=== PATIENT | male | born 1950 | race Caucasian/White ===

== ENCOUNTER 2021-11-22 09:12 | Emergency (ER) | payer OTHER, SELFPAY ==
[2021-11-22 09:17] VITALS: BP 165/84; PULSE 97; RESP 18; TEMP 36.6; O2SAT 99; BMI 28.7
--- NOTE | 2021-11-22 09:27 | ED_ITS ---
Documented by User: NICK Posada 11/22/21 11:07 HPI - General Adult General: Chief complaint: General Medical Stated complaint: Swelling and tenderness in face Time Seen by Provider: 11/22/21 09:17 History of Present Illness: Patient is a 71-year-old male comes to the ED with swelling and tenderness on face. Symptoms started 4 days ago. He has had some mild swelling, redness and tenderness of right maxillary region and around the right orbit. Denies any vision changes, eye pain or eye pain with eye movement. He has not started any recent medications and denies any allergies. Denies any lip or tongue swelling or any throat swelling/shortness of breath. Associated symptoms: Deny chest pain, dyspnea, headache(s), nausea, rash, palpitations or vomiting Review of Systems Const: Denies: fever(s), chills or fatigue Eyes: Denies: change in vision or eye discomfort ENMT: Denies: throat pain, odynophagia, nasal discharge or nasal congestion Card: Denies: chest pain, palpitations, edema, swelling of feet/ankles, dyspnea on exertion or orthopnea Resp: Denies: dyspnea, productive cough or non-productive cough GI: Denies: abdominal pain, nausea, vomiting, diarrhea, constipation or hem atochezia : Denies: flank pain, difficulty urinating, dysuria or hematuria Musc: Denies: neck pain, back pain or extremity swelling Skin/Breast: Reports: skin tenderness (Right maxillary region of face) and skin swelling (Right maxillary region of face); Denies: rash or new lesions Neuro: Denies: headache(s), numbness in extremities or weakness in extremities [facility] ED PFSH: Medical History Hypertension Surgical History No pertinent past surgical history Social History Smoking and tobacco status: former smoker Physical Exam Const: COMMON NORMALS: no acute distress, patient oriented x3, healthy appearing and alert GENERAL APPEARANCE: cooperative and comfortable HENMT: COMMON NORMALS: normocephalic HEAD & SCALP: normocephalic FACE & SINUS: edema on the right periorbital and maxilla and Facial tenderness on exam of face and sinuses on the right periorbital and maxilla MOUTH: Normal oral and palatal mucosa present THROAT: posterior oropharynx normal and uvula midline Eye: COMMON NORMALS: Equal, round and reactive pupils present, EOMs intact bilaterally and conjunctivae normal PERIORBITAL: periorbital findings abnormal positive right periorbital swelling (inferior aspect-no eye lid edema) CONJUNCTIVA: Yes conjunctivae normal PUPIL: Yes Equal, round and reactive pupils present Neck/C-Spine: COMMON NORMALS: supple GENERAL: Yes normal visual inspection Resp: COMMON NORMALS: normal respiratory effort, No retractions, No use of accessory muscles and clear to auscultation bilaterally AUSCULTATION: clear to auscultation bilaterally Cardio: COMMON NORMALS: regular rate, regular rhythm, S1 normal heart sound present, S2 normal heart sound present, No gallops present (Cardio), No clicks present (Cardio), No murmurs present (Cardio) and Peripheral pulses 2+ throughout RATE: regular rate RHYTHM: regular rhythm HEART SOUNDS: S1 normal heart sound present and S2 normal heart sound present PERIPHERAL PULSES: Peripheral pulses 2+ throughout GI: COMMON NORMALS: Normal to inspection, nondistended, normoactive bowel sounds present, Soft to palpation, non-tender and no masses PALPATION: Yes Soft to palpation : COMMON NORMALS: Yes no CVA tenderness BLADDER/KIDNEY EXAM: Yes no CVA tenderness Back/Pelvis: COMMON NORMALS: no CVA tenderness Extremity: COMMON NORMALS: normal to inspection Neuro: COMMON NORMALS: patient oriented x3 and moves all extremities SENSORIUM/ORIENTATION: Yes alert Skin: GENERAL SKIN EXAM: dry skin Course Vital Signs: Vital signs: Vital Signs Temperature 97.9 F 11/22/21 09:17 Pulse Rate 97 11/22/21 09:17 Respiratory Rate 18 11/22/21 09:17 Blood Pressure 165/84 11/22/21 09:17 Pulse Oximetry 99 11/22/21 09:17 [facility] - General Adult Medical Decision Making Patient is a 71-year-old male comes to the ED with facial erythema, edema tenderness on right maxillary and right periorbital region of face. Symptoms started approximately 4 days ago. Patient denies any pain in eye, pain with ocular movements, vision changes, lip/tongue swelling or any throat swelling/shortness of breath. He has no eyelid swelling or edema. Vitals are stable. Exam findings suggestive of some facial cellulitis and no evidence of periorbital or orbital cellulitis seen upon exam. Patient was given a dose of Rocephin and Solu-Medrol while here in the ED. He is diagnosed cellulitis and was discharged home with a prescription for clindamycin and some prednisone. Return to ED precautions given. Patient told to follow-up with PCP in the next week for reevaluation. Patient stood agree with plan. Discharge Plan Discharge Patient Disposition: Home Clinical Impression: Facial cellulitis Condition: Stable Prescriptions: New clindamycin HCl 150 mg capsule 300 mg PO QID 7 Days Qty: 56 0RF prednisone 20 mg tablet 20 mg PO BID 3 Days Qty: 6 0RF No Action lisinopril 20 mg tablet 20 mg PO DAILY 0RF pantoprazole [Protonix] 40 mg tablet,delayed release (DR/EC) 40 mg PO DAILY 0RF tamsulosin 0.4 mg capsule 0.4 mg PO DAILY 0RF doxycycline hyclate 100 mg capsule 100 mg PO BID 7 Days Qty: 14 0RF Discharge Orders: Discharge ED (Routine); Ordered 11/22/21 Ordered By: Zain Leblanc Referrals: Jesus Alberto Vogt DO [Family Provider] - Discharge Diet: Regular Discharge Activity: Resume usual activity Patient Instructions: Cellulitis (ED) Activity Restrictions/Additional Instructions: Follow-up with medical provider as directed in the next 5 to 7 days for reevaluation. Take medications as prescribed. Return to the ER or your medical provider if condition worsens. Please read and understand discharge instructions. Thank you for choosing [facility] for your healthcare needs today. Please realize this is an emergency room and that we are providing you with a medical screening exam and this may not be complete and all inclusive of all the testing and or work up that you may need to determine your ailment or severity of your illness. It is very important that you follow up as instructed or that you return to the Emergency Department should you have concerns or if your condition changes or worsens in any way. Coding Level of Care Code ED Gifted Teacher for Lisag Fwd Exam Comprehensive Documented by User: Dallin Carlos DO 11/22/21 11:37 HPI - General Adult General: Chief complaint: General Medical Stated complaint: Swelling and tenderness in face Time Seen by Provider: 11/22/21 09:17 [facility] ED PFSH: Medical History Hypertension Surgical History No pertinent past surgical history Social History Smoking and tobacco status: former smoker Course Vital Signs: Vital signs: Vital Signs Temperature 97.9 F 11/22/21 09:17 Pulse Rate 97 11/22/21 09:17 Respiratory Rate 18 11/22/21 09:17 Blood Pressure 165/84 11/22/21 09:17 Pulse Oximetry 99 11/22/21 09:17 MDM - General Adult Medical Decision Making Patient is a 71-year-old male comes to the ED with facial erythema, edema tenderness on right maxillary and right periorbital region of face. Symptoms started approximately 4 days ago. Patient denies any pain in eye, pain with ocular movements, vision changes, lip/tongue swelling or any throat swelling/shortness of breath. He has no eyelid swelling or edema. Vitals are stable. Exam findings suggestive of some facial cellulitis and no evidence of periorbital or orbital cellulitis seen upon exam. Patient was given a dose of Rocephin and Solu-Medrol while here in the ED. He is diagnosed cellulitis and was discharged home with a prescription for clindamycin and some prednisone. Return to ED precautions given. Patient told to follow-up with PCP in the next week for reevaluation. Patient stood agree with plan. Chart reviewed and patient discussed with midlevel. Agree with assessment and plan. Discharge Plan Discharge Patient Disposition: Home Clinical Impression: Facial cellulitis Condition: Stable Prescriptions: New clindamycin HCl 150 mg capsule 300 mg PO QID 7 Days Qty: 56 0RF prednisone 20 mg tablet 20 mg PO BID 3 Days Qty: 6 0RF No Action lisinopril 20 mg tablet 20 mg PO DAILY 0RF pantoprazole [Protonix] 40 mg tablet,delayed release (DR/EC) 40 mg PO DAILY 0RF tamsulosin 0.4 mg capsule 0.4 mg PO DAILY 0RF doxycycline hyclate 100 mg capsule 100 mg PO BID 7 Days Qty: 14 0RF Discharge Orders: Discharge ED (Routine); Ordered 11/22/21 Ordered By: Zain Leblanc Referrals: Jesus Alberto Vogt DO [Family Provider] - Discharge Diet: Regular Discharge Activity: Resume usual activity Patient Instructions: Cellulitis (ED) Activity Restrictions/Additional Instructions: Follow-up with medical provider as directed in the next 5 to 7 days for reevaluation. Take medications as prescribed. Return to the ER or your medical provider if condition worsens. Please read and understand discharge instructions. Thank you for choosing [facility] for your healthcare needs today. Please realize this is an emergency room and that we are providing you with a medical screening exam and this may not be complete and all inclusive of all the testing and or work up that you may need to determine your ailment or severity of your illness. It is very important that you follow up as instructed or that you return to the Emergency Department should you have concerns or if your condition changes or worsens in any way. Coding Level of Care Code ED Gifted Teacher for Derrick Fwd Exam Comprehensive
[2021-11-22] MEDS: cefTRIAXone 1,000 MG in lidocaine 1% 2.1 ML 2 MG IM (10:37)
== END 2021-11-22 10:45 | disposition home or self-care (01) ==
LOC: ER 09:57
PROVIDERS: Emergency Provider Physician Assistant
DX: Z87.891 Personal history of nicotine dependence (principal); L03.211 Cellulitis of face
CPT/HCPCS: 96372; 99283; J0696; J2930

== ENCOUNTER → 2021-12-25 09:59 | Outpatient (BNVA) | payer OTHER, SELFPAY | PROVIDERS: PCP Emergency Medicine Emergency Medical Services; Visit Provider Internal Medicine Cardiovascular Disease | DX: I49.3 Ventricular premature depolarization (principal); I10 Essential (primary) hypertension; E78.5 Hyperlipidemia, unspecified; K21.9 Gastro-esophageal reflux disease without esophagitis; R00.0 Tachycardia, unspecified | CPT/HCPCS: 93225; 99204 ==

== ENCOUNTER 2022-08-20 11:00 | Outpatient (CLI) | payer OTHER, SELFPAY | END 2022-08-20 11:01 | disposition home or self-care (01) | LOC: SLEEP 08-22 10:05 | PROVIDERS: PCP Emergency Medicine Emergency Medical Services; Visit Provider Internal Medicine Cardiovascular Disease | DX: G47.10 Hypersomnia, unspecified (principal) | CPT/HCPCS: G0399 ==

== ENCOUNTER → 2022-10-02 10:17 | Outpatient (BNVA) | payer OTHER, SELFPAY | PROVIDERS: PCP Emergency Medicine Emergency Medical Services; Visit Provider Internal Medicine Cardiovascular Disease | DX: I49.3 Ventricular premature depolarization (principal); I10 Essential (primary) hypertension; K21.9 Gastro-esophageal reflux disease without esophagitis; E78.5 Hyperlipidemia, unspecified; Z87.891 Personal history of nicotine dependence; Z79.82 Long term (current) use of aspirin | CPT/HCPCS: 93005; 99214 ==

== ENCOUNTER 2022-10-29 06:53 | Outpatient (CLI) | payer OTHER, SELFPAY ==
--- NOTE | 2022-10-29 07:15 | USCV_ITS ---
Rufus Mcdonnell Age: 72 Gender: M : 1950 Exam Date: 10/29/2022 07:41 Ordering Phys: Uzair Curiel MD ([email or web address]) Technologist: Jovani Welch [place] [facility] [place]: ventricular arrhythmia BP: 132 / 72 HR: 76 Rhythm: Other Technical Quality: Adequate MEASUREMENTS (Male / Female) Normal Values 2D ECHO LV Diastolic Diameter PLAX 4.5 cm 4.2 - 5.9 / 3.9 - 5.3 cm LV Systolic Diameter PLAX 2.8 cm IVS Diastolic Thickness 1.0 cm 0.6 - 1.0 / 0.6 - 0.9 cm IVS Systolic Thickness 1.1 cm LVPW Diastolic Thickness 0.9 cm 0.6 - 1.0 / 0.6 - 0.9 cm LVPW Systolic Thickness 1.4 cm LVOT Diameter 2.3 cm LV Ejection Fraction 2D Teich 67.4 % LV Ejection Fraction MOD 2C 62.1 % LV Ejection Fraction 2C AL 62.0 % LA Diameter 3.2 cm LA Width 3.1 cm LA Height 4.5 cm RA Width 3.0 cm RA Height 4.5 cm Aorta at Sinotubular Diameter 2.8 cm IVC Diameter 1.6 cm M-MODE Aortic Annulus Diameter 2.8 cm LA Ao Ratio MM 1.2 MV E Point Septal Separation 0.9 cm DOPPLER AV Peak Velocity 146.3 cm/s LVOT Peak Velocity 97.0 cm/s AV Area Cont Eq vti 2.5 cm squared AV Area Cont Eq pk 2.7 cm squared MV Peak Velocity 169.0 cm/s MV Area PHT 3.6 cm squared Mitral E to A Ratio 0.7 MV E' Velocity 44.0 cm/s Mitral E to MV E' Ratio 8.5 Mitral E to LV E' Lateral Ratio 8.1 Mitral E to LV E' Septal Ratio 8.9 TR Peak Velocity 321.4 cm/s TR Peak Gradient 41.3 mmHg TR Mean Velocity 243.2 cm/s TR Mean Gradient 25.9 mmHg TR Velocity Time Integral 98.8 cm Right Atrial Pressure 3.0 mmHg Pulmonary Artery Systolic Pressu 44.3 mmHg PV Peak Velocity 106.7 cm/s RV Acceleration Time 0.1 s RV Ejection Time 0.4 s RV AcT/ET 0.4 FINDINGS Left Ventricle Normal left ventricular size and systolic function, EF 63 %. No regional wall motion abnormalities. Grade I/IV diastolic dysfunction (abnormal relaxation filling pattern), normal to mildly elevated filling pressures. Right Ventricle The right ventricle is normal in size and function. Right Atrium The right atrium is normal in size. Left Atrium The left atrium is normal in size. Mitral Valve Trace mitral valve regurgitation. Aortic Valve No gross abnormalities noted Tricuspid Valve Trace tricuspid valve regurgitation. Estimated pulmonary artery peak systolic pressure 44 mmHg Pulmonic Valve No gross abnormalities noted Pericardium Normal pericardium without effusion. Aorta Normal ascending aorta dimension. IVC Normal inferior vena cava. CONCLUSIONS Normal left ventricular size and systolic function, EF 63 %. No regional wall motion abnormalities. Grade I/IV diastolic dysfunction (abnormal relaxation filling pattern), normal to mildly elevated filling pressures. Trace tricuspid valve regurgitation. Estimated pulmonary artery peak systolic pressure 44 mmHg. Trace mitral valve regurgitation. There is no pericardial effusion. There are no intracardiac masses. No similar previous studies are available for comparison Dr Uzair Curiel MD [facility] (Electronically Signed) Final Date: 29 October 2022 11:45 S
== END 2022-10-29 06:54 | disposition home or self-care (01) ==
LOC: RAD 06:55
PROVIDERS: PCP Emergency Medicine Emergency Medical Services; Visit Provider Internal Medicine Cardiovascular Disease
DX: I47.0 Re-entry ventricular arrhythmia (principal); I08.1 Rheumatic disorders of both mitral and tricuspid valves
CPT/HCPCS: 93306

== ENCOUNTER → 2022-12-25 08:31 | Outpatient (BNVA) | payer OTHER, SELFPAY | PROVIDERS: PCP Emergency Medicine Emergency Medical Services; Visit Provider Nurse Practitioner Family | DX: L82.1 Other seborrheic keratosis (principal); Z80.8 Family history of malignant neoplasm of other organs or systems; L85.3 Xerosis cutis; L81.4 Other melanin hyperpigmentation; D22.5 Melanocytic nevi of trunk; Z71.89 Other specified counseling; D69.2 Other nonthrombocytopenic purpura | CPT/HCPCS: 11102; 99213 ==

== ENCOUNTER → 2023-04-24 12:39 | Outpatient (BNVA) | payer OTHER, SELFPAY | PROVIDERS: PCP Emergency Medicine Emergency Medical Services; Visit Provider Nurse Practitioner Family | DX: I49.3 Ventricular premature depolarization (principal); I10 Essential (primary) hypertension; Z87.891 Personal history of nicotine dependence | CPT/HCPCS: 99214 ==

== ENCOUNTER → 2023-07-03 11:07 | Outpatient (BNVA) | payer OTHER, SELFPAY | PROVIDERS: PCP Emergency Medicine Emergency Medical Services; Visit Provider Internal Medicine Cardiovascular Disease | DX: I49.3 Ventricular premature depolarization (principal); I10 Essential (primary) hypertension; E78.2 Mixed hyperlipidemia; K21.00 Gastro-esophageal reflux disease with esophagitis, without bleeding; Z87.891 Personal history of nicotine dependence | CPT/HCPCS: 99214 ==

== ENCOUNTER 2023-07-07 16:22 | Emergency (ER) | payer OTHER, SELFPAY ==
[2023-07-07 16:29] VITALS: BP 231/123; PULSE 94; RESP 16; TEMP 36.6; O2SAT 97; BMI 30.1
--- NOTE | 2023-07-07 16:50 | XRR_ITS ---
PROCEDURE INFORMATION: Exam: XR Left Hand Exam date and time: 07/07/2023 4:59 PM Age: 73 years old Clinical indication: Injury or trauma; Other: Bucked off mule; Blunt trauma (contusions or hematomas); Hand; Left; Additional info: Fall and lac TECHNIQUE: Imaging protocol: Radiologic exam of the left hand. Views: 3 or more views. COMPARISON: No relevant prior studies available. FINDINGS: Bones/joints: Mild interphalangeal articular surface narrowing and spurring. No fracture or dislocation. No radiopaque foreign material. No acute osseous or joint abnormality. Lacerations the level of the 4th and PIP joint. Soft tissues: Normal. XR/XR hand LT min 3V* [id number] IMPRESSION: No acute findings.
--- NOTE | 2023-07-07 16:50 | CTR_ITS ---
PROCEDURE INFORMATION: Exam: CT Head Without Contrast Exam date and time: 07/07/2023 5:05 PM Age: 73 years old Clinical indication: Injury or trauma; Fall; Bleeding/hemorrhage TECHNIQUE: Imaging protocol: Computed tomography of the head without contrast. Radiation optimization: All CT scans at this facility use at least one of these dose optimization techniques: automated exposure control; mA and/or kV adjustment per patient size (includes targeted exams where dose is matched to clinical indication); or iterative reconstruction. REPORTING DATA: Count of CT and Cardiac NM exams in prior 12 months: This patient has received 0 known CTs and 0 known cardiac nuclear medicine studies in the 12 months prior to the current study. COMPARISON: MR jenkins's wo/w con* [id number] 12/24/2018 1:11 PM RADIATION DOSE METRICS: Total DLP (mGy-cm): 981.4 FINDINGS: Brain: Mild parenchymal volume loss. No midline shift. No mass, acute infarct, hemorrhage, or extra-axial fluid collection. Cerebral ventricles: No ventriculomegaly. Paranasal sinuses: Visualized sinuses are unremarkable. No fluid levels. Mastoid air cells: Visualized mastoid air cells are well aerated. Bones/joints: Unremarkable. No acute fracture. Soft tissues: Unremarkable. CT/CT head wo con* [id number] IMPRESSION: No acute intracranial abnormality.
--- NOTE | 2023-07-07 16:50 | CTR_ITS ---
PROCEDURE INFORMATION: Exam: CT Cervical Spine Without Contrast Exam date and time: 07/07/2023 5:05 PM Age: 73 years old Clinical indication: Injury or trauma; Fall; Blunt trauma; Additional info: Fall off mule TECHNIQUE: Imaging protocol: Computed tomography of the cervical spine without contrast. Radiation optimization: All CT scans at this facility use at least one of these dose optimization techniques: automated exposure control; mA and/or kV adjustment per patient size (includes targeted exams where dose is matched to clinical indication); or iterative reconstruction. REPORTING DATA: Count of CT and Cardiac NM exams in prior 12 months: This patient has received 0 known CTs and 0 known cardiac nuclear medicine studies in the 12 months prior to the current study. COMPARISON: CT head wo con* [id number] 07/07/2023 5:05 PM RADIATION DOSE METRICS: Total DLP (mGy-cm): 760.2 FINDINGS: Bones/joints: Mild anterolisthesis C4-C5 and C7-T1. No fracture. Diffuse degenerative disc disease and facet arthropathy. Lungs: Visualized lung apices are clear. Soft tissues: Unremarkable. CT/CT cervical spin wo con* [id number] IMPRESSION: No acute findings.
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
[2023-07-07 17:20] VITALS: BP 148/98; PULSE 102; O2SAT 100
[2023-07-07] MEDS: tetanus-dipt-pertussis 0.5 mL SDV IM (17:30)
[2023-07-07 18:27] VITALS: BP 128/90; PULSE 86; O2SAT 98
[2023-07-07 19:34] VITALS: BP 142/88; PULSE 81; O2SAT 99
== END 2023-07-07 19:35 | disposition home or self-care (01) ==
PROVIDERS: Emergency Provider Emergency Medicine; PCP Emergency Medicine Emergency Medical Services
DX: S00.81XA Abrasion of other part of head, initial encounter (principal); S60.511A Abrasion of right hand, initial encounter; S61.412A Laceration without foreign body of left hand, initial encounter; Z79.82 Long term (current) use of aspirin; Z87.891 Personal history of nicotine dependence; E78.5 Hyperlipidemia, unspecified; I10 Essential (primary) hypertension; Z85.038 Personal history of other malignant neoplasm of large intestine; V80.010A Animal-rider injured by fall from or being thrown from horse in noncollision accident, initial encounter; Z23 Encounter for immunization
CPT/HCPCS: 12004; 70450; 72125; 73130; 90715; 99284; 99291

== ENCOUNTER 2023-07-11 14:34 | Emergency (ER) | payer OTHER, SELFPAY ==
[2023-07-11 14:39] VITALS: BP 190/80; PULSE 54; RESP 16; TEMP 37.1; O2SAT 98; BMI 30.8
--- NOTE | 2023-07-11 14:47 | ED_ITS ---
HPI - Extremity Problem General: Chief complaint: Extremity Injury, Upper Stated complaint: swollen hand, has stiches, wrist pain Time Seen by Provider: 07/11/23 14:46 History of Present Illness: Patient was referred over to the emergency department from his primary care office for concerns of possible laceration wound infection. Patient was treated 4 days ago with laceration repair to the left hand after a fall injury. Patient was seen at the office today due to increased redness and swelling to the hand. Patient has normal movement of the hand with no increased pain or discomfort. Patient appears nontoxic. Clear drainage is noted from the hand. Review of Systems General: Reports: 10 or more systems reviewed and unremarkable except in HPI and below Resp: Denies: dyspnea GI: Denies: abdominal pain Musc: Reports: extremity pain and extremity swelling Skin/Breast: Reports: new lesions [facility] ED PFSH: Medical History Frequent PVCs GERD (gastroesophageal reflux disease) Hyperlipidemia History of malignant neoplasm of colon Hypertension Surgical History S/P colon resection No pertinent past surgical history Family History Mother CHF (congestive heart failure) Diabetes Hypertension Social History Smoking and tobacco/nicotine status: former use of tobacco/nicotine Physical Exam Const: COMMON NORMALS: alert HENMT: COMMON NORMALS: normocephalic HEAD & SCALP: normocephalic Neck/C-Spine: COMMON NORMALS: no meningeal signs Resp: COMMON NORMALS: normal respiratory effort and clear to auscultation bilaterally AUSCULTATION: clear to auscultation bilaterally Cardio: COMMON NORMALS: regular rate and regular rhythm RATE: regular rate RHYTHM: regular rhythm Extremity: LEFT UPPER EXTREMITY: Yes hand & digits (Well-approximated sutures surrounding erythema to wound) Left hand and digits: Yes inspection, Yes palpation, Yes ROM, Yes neurovascular exam and Yes tendon exam (Normal range of motion of tendons without pain) Neuro: SENSORIUM/ORIENTATION: Yes alert MENINGEAL SIGNS: Yes no meningeal signs Skin: NARRATIVE SKIN EXAM: Healing laceration left palmar hand. Course Vital Signs: Vital signs: Vital Signs Temperature 98.7 F 07/11/23 14:39 Pulse Rate 54 L 07/11/23 14:39 Respiratory Rate 16 07/11/23 14:39 Blood Pressure 190/80 07/11/23 14:39 Pulse Oximetry 98 07/11/23 14:39 Oxygen Delivery Me thod Room Air 07/11/23 14:39 MDM - Extremity (Nontraumatic) Medical Decision Making 73-year-old male patient comes in today with injury to the left hand that occurr ed 4 days ago. Patient at that time was seen in the emergency department and had the wound cleaned and repaired with sutures. Patient was concerned due to some increased redness and discomfort to the wound. Patient seen his primary care physician today who started him on some oral antibiotics but recommended he be seen in the ER for further recommendations. On exam we have a well- approximated wound with some erythema approximately 2 cm from the laceration line. Patient has normal range of motion of hand without increased pain. No streaking or redness up the arm is noted. Differential diagnosis includes but not limited to abscess, tenosynovitis, wound infection. 1 suture was removed and no drainage was able to be expressed from the wound. Was unable to review antibiotic prescription as patient did not bring them with him. I recommended patient continue with the antibiotics that was prescribed by his primary care office. Patient only had the prescription filled today and had only taken 1 dose. Recommended monitoring the wound for persistent redness or increasing redness and swelling up the arm. Patient was nonseptic and stable and recommended to follow-up or return as needed. Patient stated understanding and agreed to plan. No radiology studies performed this visit Discharge Plan Discharge Patient Disposition: Home Clinical Impression: Wound infection Laceration of left hand Qualifiers: Encounter type: subsequent encounter Foreign body presence: without foreign body Qualified Code(s): S61.412D - Laceration without foreign body of left hand, subsequent encounter Condition: Stable Prescriptions: No Action lisinopril 20 mg tablet 20 mg PO DAILY pantoprazole [Protonix] 40 mg tablet,delayed release (DR/EC) 40 mg PO DAILY tamsulosin 0.4 mg capsule 0.4 mg PO DAILY multivitamin Tablet 1 tab PO DAILY aspirin [Adult Low Dose Aspirin] 81 mg tablet,delayed release (DR/EC) 81 mg PO DAILY meloxicam 15 mg tablet 15 mg PO DAILY PRN metoprolol succinate 50 mg tablet extended release 24 hr 25 mg PO DAILY Discharge Orders: Discharge ED (Routine); Ordered 07/11/23 Ordered By: Rob Schumacher Referrals: Jesus Alberto Vogt, [Primary Care Provider] - Discharge Diet: Usual diet Discharge Activity: Limit activity as instructed Patient Instructions: Wound Care (General) Activity Restrictions/Additional Instructions: Sutures out in 7 more days. Keep the wound as dry as possible. Cover dressing to protect the wound as needed. Take antibiotics as prescribed by primary care physician. Return to ER for high fever greater than 100.4, increasing redness and swelling with streaking up the arm. Coding Level of Care Code ED Live Truck Technician for Derrick Rojo
--- NOTE | 2023-07-11 14:49 | PC.PHAR ---
VALORIE TORRES FOR MED REC LIST 2:50 PM 07/11/23
== END 2023-07-11 15:28 | disposition home or self-care (01) ==
PROVIDERS: Emergency Provider Nurse Practitioner Family; PCP Emergency Medicine Emergency Medical Services
DX: S61.412A Laceration without foreign body of left hand, initial encounter (principal); L08.9 Local infection of the skin and subcutaneous tissue, unspecified; W19.XXXA Unspecified fall, initial encounter; E78.5 Hyperlipidemia, unspecified; I10 Essential (primary) hypertension; Z85.038 Personal history of other malignant neoplasm of large intestine; Z87.891 Personal history of nicotine dependence; Z79.82 Long term (current) use of aspirin
CPT/HCPCS: 99282

== ENCOUNTER 2023-08-16 09:54 | Outpatient (CLI) | payer OTHER, SELFPAY ==
[2023-08-16 09:59] VITALS: BMI 30.4
--- NOTE | 2023-08-16 10:03 | ECG_ITS ---
[facility] Test Date: 2023-08-16 Pat Name: Rufus Mcdonnell Department: Room: Gender: Male Senior Electrical Designer: : 1950 Requested By: Uzair Curiel Order Number: [id number] Marty MD: Uzair Curiel M.D. Interpretive Statements NAME OF STUDY: LEXISCAN SESTAMIBI STRESS TEST INDICATION: Arrhythmias PROCEDURE: At the baseline, the EKG revealed normal sinus rhythm with a right bundle branch block pattern. Frequent PVCs in the form of quadrigeminy. The baseline heart was 82 bpm with a blood pressue of 155/86 mm of Hg Lexiscan was infused over a period of 20 seconds. A total of 0.4 milligrams of Lexiscan was infused. The stress phase was continued for a total of 5 minutes. Heart rate at the end of the stress phase was 80 bpm with a blood pressure 124/81 mm of Hg. The EKG at the peak infusion revealed more frequent PVCs in the form of trigeminy. Sestamibi was injected 20 seconds after the Lexiscan infusion. Heart rate at the end of the recovery phase was 75 bpm with a blood pressure of 142/84 mm of Hg. CONCLUSION: 1. No significant EKG changes with the LexiScan infusion 2. No LexiScan induced chest pain. More frequent PVCs with the Lexiscan infusion 3. Normal blood pressure and heart rate response 4. Sestamibi/sestamibi perfusion scan pending; see separate report. Electronically Signed On 08-16-2023 18:50:52 CHEF PASSENGER VESSEL by Uzair Curiel M.D. [email or web address]
--- NOTE | 2023-08-16 10:04 | NMCV_ITS ---
NM kenrick perf SPECT r/s* [id number] Rufus Mcdonnell Age: 73 Gender: M : 1950 Exam Date: 08/16/2023 11:12 Ordering Phys: Uzair Curiel MD ([email or web address]) Technologist: JAZMIN Linares Exam Location: [facility] Indications: CORONARY ANGIOPLASTY STATUS STRESS TEST Please see separate stress test report in [facility] for full findings IMAGE PROTOCOL Rest/Stress 1 Lexiscan Day Radiopharmaceutical Dose (mCi) Administration Site Administered by Rest: Tc-99m 10.9 IV JAZMIN Linares Sestamibi Stress:Tc-99m 32.9 IV JAZMIN Armenta Sestamibi Rest: 16-Aug-2023 60 Discovery 630 Stress: 16-Aug-2023 30 Discovery 630 0.4mg Lexiscan. Images obtained in supine and prone position. SPECT RESULTS Technical Quality: Excellent Raw Data Analysis: Normal Image Corrections: No attenuation or motion correction applied Summed Stress Score: 0 Summed Rest Score: 3 Summed Difference Score: 0 PERFUSION FINDINGS Patchy areas of slightly decreased tracer uptake were noted in the inferior and apical regions. No significant reversibility was noted in this region FUNCTIONAL RESULTS (calculated via Gated SPECT) Stress Image LV EF (%): 68 Stress EDV (mL):87 TID: 0.93 Stress ESV (mL):28 FUNCTIONAL FINDINGS: Segmental wall motion analysis revealing no gross wall motion abnormalities IMPRESSIONS 1. Myocardial perfusion imaging revealing patchy areas of persistent decreased tracer uptake in the inferior and apical regions, most likely represent attenuation artifacts. 2. Normal LV ejection fraction 68%. 3. LV wall motion analysis revealing no gross wall motion abnormalities. 4. Normal LV volume Low probability for coronary ischemia, based on the above findings Dr Uzair Curiel MD FACC (Electronically Signed) Final Date: 16 August 2023 19:46 S
[2023-08-16] MEDS: regadenoson 0.4 Mg/5 ml Syringe IVP (12:15)
[2023-08-16 12:19] VITALS: BP 128/84; PULSE 62
== END 2023-08-16 09:55 | disposition home or self-care (01) ==
LOC: CDL 09:54
PROVIDERS: PCP Emergency Medicine Emergency Medical Services; Visit Provider Internal Medicine Cardiovascular Disease
DX: I49.9 Cardiac arrhythmia, unspecified (principal)
CPT/HCPCS: 36415; 78452; 93017; 96374; A9500; J2785

== ENCOUNTER → 2023-10-21 10:14 | Outpatient (BNVA) | payer OTHER, SELFPAY | PROVIDERS: PCP Emergency Medicine Emergency Medical Services; Visit Provider Internal Medicine Cardiovascular Disease | DX: I49.3 Ventricular premature depolarization (principal); I10 Essential (primary) hypertension; E78.2 Mixed hyperlipidemia; K21.00 Gastro-esophageal reflux disease with esophagitis, without bleeding; Z87.891 Personal history of nicotine dependence | CPT/HCPCS: 99214 ==

== ENCOUNTER 2023-10-30 13:23 | Outpatient (CLI) | payer OTHER, SELFPAY ==
--- NOTE | 2023-10-30 13:39 | MR_ITS ---
WS: [id number] MRI CERVICAL SPINE NONCONTRAST HISTORY: NECK PAIN COMPARISON: Cervical spine CT 07/07/2023 Technique: Multiplanar, multisequence noncontrast imaging of the cervical spine. Advanced degenerative cervical spondylosis. Disc spaces are narrowed and desiccated. Osteophytic ridging and facet joint arthritis throughout the cervical spine. C7 anterolisthesis by 4 mm. Craniocervical junction, C1 and C2 relationship, odontoid process and soft tissues are normal. C2-C3: Mild annular disc bulging with osteophytic ridging. Mild foraminal stenosis. C3-C4: Osteophytic ridging and annular disc bulging. Small central disc protrusion. Moderate central and bilateral foraminal stenosis. C4-C5: Marked annular disc bulging with a central disc protrusion. Bilateral facet joint arthritis. T here is edema within the LEFT articular facets. Severe central and bilateral foraminal stenosis. C5-C6: Marked annular disc bulging, osteophytic ridging and facet disease. Small amount of marrow carmenza ma in the LEFT articular facets. Moderate central and bilateral foraminal stenosis due to disc and os teophyte disease. C6-C7: Marked annular disc bulging and osteophytic ridging. Severe bilateral foraminal stenosis, LEFT greater than RIGHT. Edema within the LEFT facets. C7-T1: Mild unroofing of the disc due to anterolisthesis of C7. Moderate central with severe bilatera l foraminal stenosis. Paravertebral soft tissues are negative. IMPRESSION: 1. Severe cervical spondylosis. Marked facet joint arthritis, LEFT greater than RIGHT. 2. C3-4 and C5-6: Moderate central, bilateral foraminal stenosis. 3. C4-5: Severe central and bilateral foraminal stenosis. 4. C6-7: Severe bilateral foraminal stenosis, LEFT greater than RIGHT and mild central stenosis. 5. C7-T1: Moderate central with severe bilateral foraminal stenosis. 6. LEFT facet joint marrow edema from C4-5 through C6-7. May be related to synovitis, recent trauma or arthropathy. No fractures identified on the recent CT.
== END 2023-10-30 13:24 | disposition home or self-care (01) ==
LOC: RAD 13:25
PROVIDERS: PCP Emergency Medicine Emergency Medical Services; Visit Provider Emergency Medicine Emergency Medical Services
DX: M47.892 Other spondylosis, cervical region (principal); M48.02 Spinal stenosis, cervical region
CPT/HCPCS: 72141

== ENCOUNTER → 2024-05-07 10:15 | Outpatient (BNVA) | payer OTHER, SELFPAY | PROVIDERS: PCP Emergency Medicine Emergency Medical Services; Visit Provider Internal Medicine Cardiovascular Disease | DX: I49.3 Ventricular premature depolarization (principal); I10 Essential (primary) hypertension; E78.2 Mixed hyperlipidemia; K21.00 Gastro-esophageal reflux disease with esophagitis, without bleeding; Z87.891 Personal history of nicotine dependence | CPT/HCPCS: 99214 ==

== ENCOUNTER → 2025-05-06 09:50 | Outpatient (BNVA) | payer OTHER, SELFPAY | PROVIDERS: PCP Family Medicine; Visit Provider Internal Medicine Cardiovascular Disease | DX: I49.3 Ventricular premature depolarization (principal); I10 Essential (primary) hypertension; E78.5 Hyperlipidemia, unspecified; K21.9 Gastro-esophageal reflux disease without esophagitis; Z87.891 Personal history of nicotine dependence | CPT/HCPCS: 99214 ==